=== PATIENT | female | born 1990 | race Two or more races ===

== ENCOUNTER 2020-11-28 20:39 | Emergency (ER) | payer SELFPAY ==
[~2020-11-28] VITALS: Ht 172.7 cm; Wt 100.0 kg
[2020-11-28 21:55] LABS: BASOPHILS % 1.1 % (0.0-2.0); EOSINOPHILS % 3.3 % (0.0-5.0); HEMATOCRIT. 30.1 % (36.0-48.0); HEMOGLOBIN. 10.2 g/dL (12.0-16.0); LYMPHOCYTES % 27.8 % (20.0-50.0); MEAN CORPUSCULAR HEMOGLOBIN 28.7 pg (28.0-32.0); MEAN CORPUSCULAR VOLUME 84.4 fL (81.0-99.0); MEAN PLATELET VOLUME 8.3 fl (7.4-10.4); MONOCYTES % 7.9 % (2.0-8.0); NEUTROPHILS % 59.9 % (40.0-76.0); PLATELET 334 x1000/uL (130-400); RED BLOOD CELL COUNT 3.57 mill/uL (4.2-5.4); RED CELL DISTRIBUTION WIDTH 14.3 % (11.6-14.6)
[2020-11-28] MEDS ORDERED: SODIUM CHLORIDE 0.9% 1,000 ML IV ONE (22:00)
[2020-11-28 22:02] LABS: CHLORIDE 111 mEq/L (98-107)
[2020-11-28 22:08] LABS: ETHANOL BLOOD < 10 mg/dL
[2020-11-28 22:19] LABS: CLARITY URINE TURBID (CLEAR); COLOR URINE RED (YELLOW); KETONES URINE NEGATIVE (NEGATIVE); LEUKOCYTE ESTERASE URINE 2+ (NEGATIVE); NITRITE URINE NEGATIVE (NEGATIVE); OCCULT BLOOD URINE 3+ (NEGATIVE); PH URINE 5.5 (4.5-8.0); PROTEIN URINE 2+ (NEGATIVE); SPECIFIC GRAVITY URINE 1.024 (1.005-1.030)
[2020-11-28 22:33] LABS: *BARBITURATES SCREEN URINE NEGATIVE (NEGATIVE); *BENZODIAZEPINES SCREEN URINE NEGATIVE (NEGATIVE); *COCAINE SCREEN URINE NEGATIVE (NEGATIVE)
[2020-11-28 22:34] LABS: METHADONE URINE SCREEN NEGATIVE (NEGATIVE); OPIATES URINE SCREEN NEGATIVE (NEGATIVE); PHENCYCLIDINE URINE SCREEN NEGATIVE (NEGATIVE)
[2020-11-28 22:35] LABS: CANNABINOID URINE SCREEN NEGATIVE (NEGATIVE)
[2020-11-28 22:37] LABS: *AMPHETAMINES SCREEN URINE PRESUMTIVE POSITIVE (NEGATIVE)
[2020-11-28 22:59] LABS: HCG SCREEN NEGATIVE
[2020-11-28] MEDS ORDERED: CEFTRIAXONE 1 G PREMIX 50 ML IV SCH (23:30)
[2020-11-28] MEDS ORDERED: LORAZEPAM 2MG/ML CPJ IV ONE (23:30)
[2020-11-29] MEDS ORDERED: HALOPERIDOL LACTATE 5MG/ML VIAL IM ONE (00:15)
[2020-11-29] MEDS ORDERED: CEFTRIAXONE SODIUM 1 G/VIAL IM ONE (00:15)
[2020-11-29] MEDS ORDERED: LIDOCAINE HCL 1% 20ML VIAL (Pyxis) INJ INFIL ONE (00:15)
[2020-11-29] MEDS ORDERED: CEPH500C2 MT (18:00)
[2020-11-29 20:40] VITALS: BP 131/71
== END 2020-11-29 21:08 | disposition home or self-care (01) ==
LOC: EDBD 20:44 → ER 20:44
DX: G93.40 Encephalopathy, unspecified (principal); T43.621A Poisoning by amphetamines, accidental (unintentional), initial encounter; Y92.9 Unspecified place or not applicable; N30.00 Acute cystitis without hematuria; Z59.0 Homelessness
CPT/HCPCS: 36415; 70450; 80053; 80305; 80320; 81003; 84703; 85025; 93005; 96372; 96374; 99285; J0696; J1630; J2060; J3490; J7030; G0480